=== PATIENT | male | born 1990 | race Caucasian/White ===

== ENCOUNTER 2016-07-24 20:50 | Inpatient (IN) | payer BC, OTHER ==
[~2016-07-24] VITALS: Ht 170.2 cm; Wt 62.6 kg
[2016-07-24 20:45] VITALS: BP 124/85
[2016-07-24] MEDS ORDERED: MAGNESIUM HYDROXIDE 30 ML LIQUID UDC PO PRN (21:15)
[2016-07-24] MEDS ORDERED: MAG HYDROX/AL HYDROX/SIMETH 30 ML LIQUID UDC PO PRN (21:15)
[2016-07-24] MEDS ORDERED: diphenhydrAMINE 50 MG CAPSULE PO PRN (21:15)
[2016-07-24] MEDS ORDERED: THIAMINE HCL 200 MG/2 ML VIAL IM ONE (21:15)
[2016-07-24] MEDS ORDERED: DICYCLOMINE HCL 20 MG TABLET PO PRN (21:15)
[2016-07-24] MEDS ORDERED: MIRALAX 17 GM POWD.PACK PO PRN (21:15)
[2016-07-24] MEDS ORDERED: LOPERAMIDE HCL 2 MG CAPSULE PO PRN ×2 (21:15)
[2016-07-24] MEDS ORDERED: ONDANSETRON 4 MG/2 ML VIAL IM PRN (21:15)
[2016-07-24] MEDS ORDERED: LORAZEPAM 1 MG TABLET PO PRN (21:15)
[2016-07-24] MEDS ORDERED: HYDROXYZINE PAMOATE 25 MG CAPSULE PO PRN (21:15)
[2016-07-24] MEDS ORDERED: ACETAMINOPHEN 325 MG TABLET PO PRN (21:15)
[2016-07-24] MEDS ORDERED: CLONIDINE HCL 0.1 MG TABLET PO PRN (21:15)
[2016-07-24] MEDS ORDERED: LORAZEPAM 2 MG/1 ML VIAL IM PRN (21:15)
[2016-07-24 21:46] LABS: *AMPHETAMINE, URINE NEGATIVE (NEGATIVE); *BARBITURATE, URINE NEGATIVE (NEGATIVE); *CANNABINOID, URINE NEGATIVE (NEGATIVE); *COCCAINE, URINE NEGATIVE (NEGATIVE); *OPIATE, URINE NEGATIVE (NEGATIVE); *PHENCYCLIDINE SCREEN,URINE NEGATIVE (NEGATIVE)
[2016-07-24 23:50] LABS: BASOPHILS % (AUTO) 0.3 % (0.0-2.0); EOSINOPHILS # (AUTO) 0.1 K/uL (0.0-0.7); EOSINOPHILS % (AUTO) 0.8 % (0.0-7.0); HEMATOCRIT 47.1 % (40-50); HEMOGLOBIN 16.4 G/DL (14.0-18.0); LYMPHOCYTES # (AUTO) 2.2 K/UL (0.8-4.8); LYMPHOCYTES % (AUTO) 21.7 % (20.5-51.5); MEAN CORPUSCULAR HEMOGLOBIN 31.5 UUG (27.0-31.0); MEAN CORPUSCULAR HGB CONC 35 g/dL (32.0-37.0); MEAN CORPUSCULAR VOLUME 90.2 FL (82.0-92.0); MONOCYTES # (AUTO) 0.3 K/UL (0.1-1.30); MONOCYTES % (AUTO) 3.1 % (0.0-11.0); NEUTROPHILS # (AUTO) 7.8 K/UL (1.8-8.9); NEUTROPHILS % (AUTO) 74.1 % (38.5-71.5); PLATELET COUNT (AUTO) 288 K/UL (150-450); RED BLOOD CELL COUNT(AUTO) 5.22 MIL/UL (4.7-6.1); RED CELL DISTRIBUTION WIDTH 13.3 % (11.5-14.5); WHITE BLOOD COUNT (AUTO) 10.4 K/UL (4.0-11.2)
[2016-07-24 23:53] LABS: BILIRUBIN,TOTAL 0.4 mg/dL (0.2-1.0); CALCIUM 8.6 mg/dL (8.5-10.1); CREATININE 0.9 mg/dL (0.6-1.3); MAGNESIUM 1.8 mg/dL (1.8-2.4); POTASSIUM 3.7 mmol/L (3.5-5.1); TOTAL PROTEIN, SERUM 6.7 g/dL (6.4-8.2)
[2016-07-25 00:04] LABS: THYROID STIMULATING HORMONE 0.201 mIU/mL (0.358-3.740)
[2016-07-25 00:06] LABS: HIV-1 p24 ANTIGEN NON REACTIVE (NONREACTIVE); HIV-1/2 ANTIBODY NON REACTIVE (NONREACTIVE)
[2016-07-25 00:19] VITALS: BP 128/74
[2016-07-25] MEDS: LORAZEPAM 1 MG TABLET PO PRN ×2 (03:31→20:59)
[2016-07-25] MEDS ORDERED: THIAMINE HCL 200 MG/2 ML VIAL ONE (03:37)
[2016-07-25] MEDS ORDERED: LORAZEPAM 1 MG TABLET ONE (03:37)
[2016-07-25 04:15] VITALS: BP 118/69
[2016-07-25] MEDS: ONDANSETRON ODT 4 MG TAB.RAPDIS SL PRN (07:40)
[2016-07-25 08:00] VITALS: BP 109/56
[2016-07-25] MEDS ORDERED: TUBERCULIN,PURIF.PROT.DERIV. 5 TU/0.1 ML TEST ID ONE (09:00)
[2016-07-25] MEDS: FOLIC ACID 1 MG TABLET PO SCH (09:14)
[2016-07-25] MEDS: THIAMINE HCL 100 MG TABLET PO SCH (09:14)
[2016-07-25] MEDS: IBUPROFEN 400 MG TABLET PO PRN ×2 (09:22→21:39)
[2016-07-25] MEDS: MULTIVITAMINS,THERAPEUTIC TABLET PO SCH (09:27)
[2016-07-25] MEDS ORDERED: LORAZEPAM 1 MG TABLET PO ONE (10:30)
[2016-07-25 12:00] VITALS: BP 126/83
[2016-07-25 16:00] VITALS: BP 137/79
[2016-07-25 20:00] VITALS: BP 138/84
[2016-07-26] VITALS: BP 124/77
[2016-07-26 04:00] VITALS: BP 128/79
[2016-07-26 08:00] VITALS: BP 131/89
[2016-07-26 08:29] LABS: THYROID STIMULATING HORMONE 1.447 mIU/mL (0.358-3.740)
[2016-07-26] MEDS: MULTIVITAMINS,THERAPEUTIC TABLET PO SCH (08:31)
[2016-07-26] MEDS: THIAMINE HCL 100 MG TABLET PO SCH (08:31)
[2016-07-26] MEDS: FOLIC ACID 1 MG TABLET PO SCH (08:31)
[2016-07-26 08:33] LABS: FOLIC ACID 7.2 NG/ML (8.6-58.9)
[2016-07-26 08:40] LABS: CALCIUM 9.1 mg/dL (8.5-10.1); CARBON DIOXIDE 33 mmol/L (21-32); CHLORIDE 106 mmol/L (98-107); CREATININE 0.7 mg/dL (0.6-1.3); GFR > 130 mL/min (>60); GLUCOSE 93 mg/dL (74-106); MAGNESIUM 2.2 mg/dL (1.8-2.4); PHOSPHOROUS 4.3 mg/dL (2.5-4.9); POTASSIUM 3.9 mmol/L (3.5-5.1); SODIUM SERUM 145 mmol/L (136-145); UREA NITROGEN, BLOOD 8 mg/dL (7-18)
[2016-07-26] MEDS: IBUPROFEN 400 MG TABLET PO PRN (11:17)
[2016-07-26] MEDS: ONDANSETRON ODT 4 MG TAB.RAPDIS SL PRN (11:18)
[2016-07-26] MEDS ORDERED: LORAZEPAM 1 MG TABLET PO PRN ×2 (11:30)
[2016-07-26 12:00] VITALS: BP 144/88
[2016-07-26 14:06] LABS: HCV AB <0.1 s/co ratio (0.0-0.9); HEPATITIS B CORE AB, IgM Negative (Negative); HEPATITIS B SURFACE AG Negative (Negative)
[2016-07-26 16:00] VITALS: BP 148/86
[2016-07-26 20:35] VITALS: BP 132/88
[2016-07-27 00:43] VITALS: BP 131/77
[2016-07-27 04:25] VITALS: BP 118/62
[2016-07-27 08:00] VITALS: BP 142/85
[2016-07-27] MEDS: THIAMINE HCL 100 MG TABLET PO SCH (08:52)
[2016-07-27] MEDS: MULTIVITAMINS,THERAPEUTIC TABLET PO SCH (08:52)
[2016-07-27] MEDS: FOLIC ACID 1 MG TABLET PO SCH (08:52)
[2016-07-27 12:00] VITALS: BP 145/88
[2016-07-27] MEDS ORDERED: Folic Acid PO (12:13)
[2016-07-27] MEDS ORDERED: HYDR-3895 PO (12:13)
[2016-07-27 16:09] LABS: *AMPHETAMINE, URINE NEGATIVE (NEGATIVE); *BARBITURATE, URINE NEGATIVE (NEGATIVE); *CANNABINOID, URINE NEGATIVE (NEGATIVE); *COCCAINE, URINE NEGATIVE (NEGATIVE); *OPIATE, URINE NEGATIVE (NEGATIVE); *PHENCYCLIDINE SCREEN,URINE NEGATIVE (NEGATIVE)
== END 2016-07-27 16:25 | disposition home or self-care (01) | DRG 895 ==
LOC: SRC 20:50
PROVIDERS: ADMIT Internal Medicine; ATTEND Internal Medicine
PROC: HZ2ZZZZ Detoxification Services for Substance Abuse Treatment (ICD-10-PCS; principal; 2016-07-24)
PROC: HZ41ZZZ Group Counseling for Substance Abuse Treatment, Behavioral (ICD-10-PCS; 2016-07-26)
PROC: HZ31ZZZ Individual Counseling for Substance Abuse Treatment, Behavioral (ICD-10-PCS; 2016-07-26)
DX: F10.230 Alcohol dependence with withdrawal, uncomplicated (principal); E87.3 Alkalosis; Y90.9 Presence of alcohol in blood, level not specified; I15.9 Secondary hypertension, unspecified; F17.210 Nicotine dependence, cigarettes, uncomplicated; D75.89 Other specified diseases of blood and blood-forming organs; Z59.1 Inadequate housing; E86.0 Dehydration; E53.8 Deficiency of other specified B group vitamins; E07.81 Sick-euthyroid syndrome; R73.9 Hyperglycemia, unspecified
CPT/HCPCS: 36415; 70030-TC; 80307; 82746; 83690; 83735; 84100; 84443; 85025; 86580; 86592; 86705; 86803; 87340; 87806; A4663; G6040-TC; J3411; Q0162